=== PATIENT | female | born 1995 | race Caucasian/White ===

== ENCOUNTER 2016-12-29 20:02 | Emergency (ER) | payer BC ==
[2016-12-29 20:38] VITALS: BP 106/57
--- NOTE | 2016-12-29 21:05 | UC ---
Throat Pain/Nasal Hans HPI - HPI Summary HPI Summary: ariana od sore throat for 2 days throat pain h=is worseneing headache pressure in the front of neck denies ear , cough and nasal congestion denies fever and chi;lls not taking any medication for her symptoms - History of Current Complaint Chief Complaint: UCGeneralIllness Stated Complaint: SORE THROAT Time Seen by Provider: 12/29/16 20:41 Hx Obtained From: Patient - Allergies/Home Medications Allergies/Adverse Reactions: Allergies Allergy/AdvReac Type Severity Reaction Status Date / Time Penicillins Allergy Unknown Verified 12/29/16 20:32 Reaction Details Home Medications: Home Medications Escitalopram (NF) [Lexapro (NF)] 15 mg 12/29/16 [History] Valacyclovir HCl [Valtrex] 12/29/16 [History] PMH/Surg Hx/FS Hx/Imm Hx Previously Healthy: Yes - Surgical History Surgical History: None - Family History Known Family History: Negative: Cardiac Disease, Hypertension, Diabetes - Social History Occupation: Employed Full-time Lives: With Family Alcohol Use: Rare Substance Use Type: None Smoking Status (MU): Never Smoked Tobacco Review of Systems Constitutional: Negative Skin: Negative Eyes: Negative ENT: Sore Throat Respiratory: Negative Cardiovascular: Negative Gastrointestinal: Negative Genitourinary: Negative Motor: Negative Neurovascular: Negative Musculoskeletal: Negative Neurological: Headache Psychological: Negative All Other Systems Reviewed And Are Negative: Yes Physical Exam Triage Information Reviewed: Yes Appearance: No Pain Distress, Well-Nourished Vital Signs: Initial Vital Signs Temp 98.7 F 12/29/16 20:33 Pulse 81 12/29/16 20:33 Resp 16 12/29/16 20:33 BP 106/57 12/29/16 20:33 Pulse Ox 99 12/29/16 20:33 Vital Signs Reviewed: Yes Eyes: Positive: Conjunctiva Clear ENT: Positive: Pharyngeal erythema, TMs normal. Negative: Nasal congestion, Nasal drainage, Tonsillar swelling, Tonsillar exudate Neck: Positive: No Lymphadenopathy Respiratory: Positive: Lungs clear, Normal breath sounds, No respiratory distress, No accessory muscle use Cardiovascular: Positive: RRR, No Murmur, Pulses Normal Abdomen Description: Positive: Nontender, Soft Bowel Sounds: Positive: Present Musculoskeletal Exam: Normal Neurological: Positive: Alert Psychological Exam: Normal Skin Exam: Normal Throat Pain/Nasal Course/Dx - Differential Dx/Diagnosis Differential Diagnosis/HQI/PQRI: Pharyngitis, Tonsillitis Provider Diagnoses: strep pharyngitis Discharge - Discharge Plan Condition: Stable Disposition: HOME Patient Education Materials: Strep Throat (ED) Referrals: Ally Bartno MD [Primary Care Provider] - Additional Instructions: Please take antibiotic as directed Increase fluids and rest Take acetaminophen or ibuprofen for fever or pain Please review your discharge instructions. If your symptoms do not improve please call your primary care provider or return to urgent care.
== END 2016-12-29 21:15 | disposition home or self-care (01) ==
LOC: UCEAST 20:02
DX: J02.0 Streptococcal pharyngitis (principal); Z88.0 Allergy status to penicillin
CPT/HCPCS: 87651; 99202; G0463

== ENCOUNTER 2017-01-09 03:36 | Emergency (ER) | payer BC ==
[2017-01-09] MEDS ORDERED: Ketorolac INJ* 60 MG/2 ML VIAL IM ONE (04:24)
[2017-01-09 05:19] VITALS: BP 108/51
--- NOTE | 2017-01-09 05:41 | ED ---
I, Natanael,Cesario, scribed for Ko King MD on 01/09/17 at 0423 . Throat Pain/Nasal Congestion - HPI Summary HPI Summary: This 21 y/o female presents to ED for persistent throat pain since 10 days ago. Pt was seen at Urgent Care about a week ago, and was dx with strep throat. Pt was given clarithromycin. She admits to missing one dose, and still has a day worth left. Increased fatigue. Increased sinus congestion. PMHx includes seasonal allergies and depression that is controlled with medications. Primary care provider involves Dr. Barton. - History of Current Complaint Chief Complaint: EDThroatPain Time Seen by Provider: 01/09/17 04:05 Hx Obtained From: Patient, Medical Records Onset/Duration: Sudden Onset, Still Present Associated Signs And Symptoms: Positive: Sinus Discomfort Related History: Seasonal Allergies - Allergies/Home Medications Allergies/Adverse Reactions: Allergies Allergy/AdvReac Type Severity Reaction Status Date / Time Penicillins Allergy Unknown Verified 12/29/16 20:32 Reaction Details PMH/Surg Hx/FS Hx/Imm Hx Psychiatric History: Reports: Hx Depression Infectious Disease History: No Infectious Disease History: Reports: History Other Infectious Disease - Genital warts Denies: Traveled Outside the [place] in Last 30 Days - Family History Known Family History: Negative: Cardiac Disease, Hypertension, Diabetes - Social History Alcohol Use: Rare Hx Substance Use: No Substance Use Type: Reports: None Hx Tobacco Use: No Smoking Status (MU): Never Smoked Tobacco Review of Systems Positive: Fatigue. Negative: Fever Negative: Photophobia, Erythema Positive: Sore Throat, Other - sinus discomfort Negative: Palpitations, Chest Pain Negative: Shortness Of Breath, Cough Negative: Abdominal Pain, Vomiting, Nausea Negative: dysuria, hematuria Negative: Myalgia, Edema Negative: Rash Neurological: Other - Negative for dizziness Negative: Headache Negative: Anxious, Depressed All Other Systems Reviewed And Are Negative: Yes Physical Exam - Summary Physical Exam Summary: Constitutional: Well-developed, Well-nourished, Alert. (-) Distressed Skin: Warm, Dry HENT: Normocephalic; Atraumatic Eyes: Conjunctiva normal Neck: Musculoskeletal ROM normal neck. (-) JVD, (-) Stridor, (-) Tracheal deviation Cardio: Rhythm regular, rate normal, Heart sounds normal; Intact distal pulses; The pedal pulses are 2+ and symmetric. Radial pulses are 2+ and symmetric. (+) 2 /5 systolic Murmur Pulmonary/Chest wall: Effort normal. (-) Respiratory distress, (-) Wheezes, (-) Rales Abd: Soft, (-) Tenderness, (-) Distension, (-) Guarding, (-) Rebound Musculoskeletal: (-) Edema Lymph: (-) Cervical adenopathy Neuro: Alert, Oriented x3 Psych: Mood and affect Normal Triage Information Reviewed: Yes Vital Signs On Initial Exam: Initial Vitals Temp Pulse Resp BP Pulse Ox 98.2 F 76 16 139/83 99 01/09/17 03:38 01/09/17 03:38 01/09/17 03:38 01/09/17 03:38 01/09/17 03:38 Vital Signs Reviewed: Yes Diagnostics - Vital Signs Vital Signs Temp Pulse Resp BP Pulse Ox 01/09/17 03:50 98 F 71 14 107/56 98 01/09/17 03:38 98.2 F 76 16 139/83 99 - Laboratory Lab Statement: Any lab studies that have been ordered have been reviewed, and results considered in the medical decision making process. Re-Evaluation - Re-Evaluation First Eval Re-Evaluation Time: 05:08 Comment: MD in room to re-evaluate pt. Plan of care involving discharge is discussed, and pt is agreeable this time. EENT Course/Dx - Course Assessment/Plan: This 21 y/o female presents to ED for persistent sore throat since 10 days ago. Pt is currently on abx treatment with a day's dose left. She was treated symptomatically with ketorolac. Pt is advised to follow up with her primary care in 2 days. - Diagnoses Provider Diagnoses: Upper respiratory infection Discharge - Discharge Plan Condition: Stable Disposition: HOME Patient Education Materials: Upper Respiratory Infection (ED) Referrals: Ally Barton MD [Primary Care Provider] - 2 Days The documentation as recorded by the Natanael pham Soohyun accurately reflects the service I personally performed and the decisions made by me, Ko King MD.
== END 2017-01-09 05:21 | disposition home or self-care (01) ==
LOC: ED 03:36
DX: J06.9 Acute upper respiratory infection, unspecified (principal); J02.9 Acute pharyngitis, unspecified; R53.83 Other fatigue
CPT/HCPCS: 96372; 99281; J1885

== ENCOUNTER 2017-08-17 19:00 | Emergency (ER) | payer BC ==
--- OUTSIDE RECORDS SUMMARY | 2017-08-17 19:05 | XMS REPORT ---
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 Active unspecified Onset: 08/23/2016 Acute pharyngitis Kushal Ruelas M.D. Active Family History Date Family Member(s) Problem(s) Comments Father 65 Mother 57 First Brother 34 First Sister 36 Social History Type Date Description Comments Education Highest level completed, 12th G[employer]. [employer]. [employer], grade went on exchange to [employer] for 10 months. Lives With Mother And Father Diet recently became a vegetarian. due to social economic reasons. Sleep Typically sleeps 7 hours a night Occupation working at [employer] on also [employer] for twin boys- the weekend. just turned 1. Cigarette Use Never Smoked Cigarettes ETOH Use Social Alcohol almost none. ( 09/06) had been drinking more in the past Recreational Drug Use Denies Drug Use Smoking Patient has never smoked Exercise Type/Frequency Exercises regularly walks 40 minutes 3-4 times a week. Hikes, dances. Seat Belt/Car Seat Always uses seat belt Currently Active Patient is currently sexually active Currently Active with men. No STI. Condom Use Occasionally Dom Violence Screen feels safe at home, at work, and in the community Allergies, Adverse Reactions, Alerts Date Description Reaction Status Severity Comments 05/29/2014 Penicillin active Medications Medication Date Status Form Strength Qnty SIG Indications Ordering Provider Escitalopram Active Tablets 20mg 30tabs 1 by F43.21 Ally Tamayo Oxalate 017 mouth Mick, every M.D. day Valtrex Active Tablets 500mg 40tabs 4 by B00.9 Ally Tamayo 016 mouth Mick, twice M.D. daily for outbreak s. Nexplanon Active Implant 68mg Sep 2015 Ally LDanilo 016 Mick, M.D. Clarithromycin Hx Tablets 250mg 1 by Unknown 017 - mouth twice a 017 day Escitalopram Hx Tablets 10mg 45tabs 1 /2 by F43.21 Ally Tamayo Oxalate 017 - mouth Mick, every M.D. 017 day Escitalopram Hx Tablets 10mg 30tabs 1 by F43.21 Ally Tamayo Oxalate 017 - mouth Mick, every M.D. 017 day Azithromycin Hx Tablets 250mg 6tabs 2 by J02.9 Kushal Flores 017 - mouth Midura, today M.D. 017 and 1 by mouth x 4 days Escitalopram Hx Tablets 5mg 30tabs 1 by F43.21 Ally Tamayo Oxalate 016 - mouth Mick, every M.D. 017 day No Active Hx Unknown Medications 016 - 016 No Active Hx Unknown Medications 014 - 014 Escitalopram Hx Tablets 5mg 90tabs 1 by 311 Ally Tamayo Oxalate 014 - mouth Mick, every M.D. 016 day Medications Administered in Office Medication Date Status Form Strength Qnty SIG Indications Ordering Provider TB Intradermal Administered Injection Unknown Test 001 TB Intradermal Administered Injection Unknown Test 000 TB Intradermal Administered Injection Unknown Test 997 Immunizations CPT Code Status Date Vaccine Reaction Lot # [id number] Given 09/13/2016 Influenza Vac, Quadrivalent, Slit Virus, [id number] [address] Given 05/29/2014 DO Not Use Split Influenza Virus Vaccine [id number] 33586 Given 06/11/2012 Gardasil vacine typs 6,11,16,18 3 dose schedule 85572 Given 02/25/2011 Gardasil vacine typs 6,11,16,18 3 dose schedule 62371 Given 12/02/2010 Meningococcal Conjugate menactra Vaccine,Serogroups For Intramuscular Use 63204 Given 11/22/2010 Gardasil vacine typs 6,11,16,18 3 dose schedule 01022 Given 10/22/2007 Hep A Ped 2-Dose Immunization 41120 Given 09/19/2006 Tdap Tetanus, W Pertussis [id number] 62183 Given 02/24/2000 MMR Virus Immunization 34146 Given 02/24/2000 DTaP Immunization 51356 Given 02/24/2000 Hep A Ped 2-Dose Immunization 56094 Given 07/12/1999 (IPV) [place]active [place]iovirus Vacc[place]v 53056 Given 10/01/1996 Hib PRP-T Conjugate 4 Dose Schedule 31239 Given 10/01/1996 DTaP Immunization 76629 Given 04/30/1996 MMR Virus Immunization 59243 Given 1995 Hepatitis B Immunization, [place]-19 Years 00984 Given 1995 DTP & Hib Immunization 23076 Given 1995 (IPV) [place] 68814 Given 1995 DTP & Hib Immunization 14867 Given 1995 (IPV) Inactive Poliovirus Vacc[place]v 83520 Given 1995 Hepatitis B Immunization, [place]-19 Years 59827 Given 1995 DTP & Hib Immunization 82490 Given 1995 (IPV) Inactive Poliovirus Vaccine opv 51619 Given 1995 Hepatitis B Immunization, -19 Years Vital Signs Date Vital Result Comment 07/21/2017 BP Systolic 96 mmHg BP Diastolic 54 mmHg Heart Rate 62 /min Body Temperature 99.0 F Height 62 inches 5'2" Weight 134.12 lb BMI (Body Mass Index) 24.5 kg/m2 06/21/2017 BP Systolic 102 mmHg BP Diastolic 60 mmHg Heart Rate 60 /min Body Temperature 97.9 F Respiratory Rate 18 /min Height 62 inches 5'2" Weight 132.50 lb BMI (Body Mass Index) 24.2 kg/m2 02/13/2017 BP Systolic 100 mmHg BP Diastolic 70 mmHg Heart Rate 80 /min Body Temperature 98.1 F Respiratory Rate 18 /min Height 62 inches 5'2" Weight 124.00 lb BMI (Body Mass Index) 22.7 kg/m2 12/31/2016 BP Systolic 100 mmHg BP Diastolic 60 mmHg Heart Rate 60 /min Body Temperature 97.6 F Respiratory Rate 16 /min Height 62 inches 5'2" Weight 122.00 lb BMI (Body Mass Index) 22.3 kg/m2 12/01/2016 BP Systolic 110 mmHg BP Diastolic 70 mmHg Heart Rate 60 /min Body Temperature 98.0 F Respiratory Rate 18 /min Height 62 inches 5'2" Weight 128.00 lb BMI (Body Mass Index) 23.4 kg/m2 10/24/2016 BP Systolic 114 mmHg BP Diastolic 60 mmHg Heart Rate 60 /min Body Temperature 98.4 F Respiratory Rate 16 /min Height 62 inches 5'2" Weight 125.38 lb BMI (Body Mass Index) 22.9 kg/m2 09/13/2016 BP Systolic 98 mmHg BP Diastolic 62 mmHg Heart Rate 66 /min Body Temperature 97.9 F Respiratory Rate 16 /min Height 62 inches 5'2" Weight 122.38 lb BMI (Body Mass Index) 22.4 kg/m2 08/23/2016 BP Systolic 120 mmHg BP Diastolic 68 mmHg Heart Rate 84 /min Body Temperature 102.7 F Respiratory Rate 18 /min Weight 125.25 lb 08/02/2016 BP Systolic 110 mmHg BP Diastolic 70 mmHg Heart Rate 72 /min Body Temperature 98.0 F Respiratory Rate 18 /min Height 62 inches 5'2" Weight 124.00 lb BMI (Body Mass Index) 22.7 kg/m2 04/18/2016 BP Systolic 100 mmHg BP Diastolic 70 mmHg Heart Rate 60 /min Body Temperature 98.2 F Respiratory Rate 18 /min Height 62 inches 5'2" Weight 127.00 lb BMI (Body Mass Index) 23.2 kg/m2 06/30/2014 BP Systolic 116 mmHg BP Diastolic 66 mmHg Heart Rate 60 /min Body Temperature 98.6 F Respiratory Rate 16 /min Height 62 inches 5'2" Weight 130.12 lb BMI (Body Mass Index) 23.8 kg/m2 05/29/2014 BP Systolic 110 mmHg BP Diastolic 72 mmHg Heart Rate 68 /min Body Temperature 98.7 F Respiratory Rate 14 /min Height 62 inches 5'2" Weight 131.00 lb BMI (Body Mass Index) 24.0 kg/m2 Results Test Date Test Result H/L Range Note Vaginitis Plus Nuswab 12/31/2016 Atopobium vaginae Low - 0 Score 1 Bvab 2 Low - 0 Score 1 Megasphaera 1 Low - 0 Score 1, 2 Audrey albicans, Carol Negative Negative 1 Audrey glabrata, Carol Negative Negative 1, 3 Trich vag by Carol Negative Negative 1 Chlamydia trachomatis, Carol Negative Negative 1 Neisseria gonorrhoeae, Carol Negative Negative 1 Hsvig+HSV Iig+HSVIgM 12/31/2016 HSV, IgM I/II <0.91 Ratio 0.00-0.90 1 , 4 Combination HSV 1 IgG, Type Spec 31.40 index High 0.00-0.90 1, 5 HSV 2 IgG, Type Spec <0.91 index 0.00-0.90 1, 6 Laboratory test finding 12/31/2016 HCV Antibody <0.1 s/coratio 0.0- 0.9 1, 7 RPR Non Reactive Non Reactive 1 HIV 1/O/2 Ag/AB Prelim 12/31/2016 HIV Screen 4th Non Reactive Non Reactive 1 W/[place] RFX Sup Generation wRfx Laboratory test 12/29/2016 Rapid Strep POSITIVE Negative 8 finding Molecular Laboratory test 08/23/2016 Quickstrep positive Negative finding Complete Blood Count 04/22/2016 WBC 3.9 x10^3/UL 3.6-9.6 RBC 3.91 x10^6/UL 3.90-5.70 HGB 11.2 g/dL Low 12.1-17.2 HCT 34 % Low 36-50 MCV 87.0 fL 82.2-97.4 MCH 28.8 pg 27.6-33.3 MCHC 33.1 g/dL 33.0-35.5 RDW 14.4 % High 11.6-13.7 PLT 157 x10^3/UL 150-400 MPV 9.3 fL 7.4-10.4 Gran # 2.0 x10^3/UL 1.5-7.2 Lymph# 1.8 x10^3/UL 0.7-4.9 [place]# 0.1 x10^3/UL 0.1-0.9 Gran % 49.2 % 42.2-75.2 Lymph % 47.3 % 20.5-51.1 [place]% 3.5 % 1.7-9.3 Comprehensive Metabolic Prof 04/22/2016 Sodium 140 mEq/L 134-149 Potassium 4.3 mEq/L 3.6-5.5 Chloride 100 mEq/L 94-112 Carbon Dioxide 22 mEq/L 21-32 Glucose 89 mg/dL 70-105 BUN 6 mg/dL 6-26 Creatinine 0.7 mg/dL 0.6-1.4 BUN/Creat Ratio 8.6 CALC 8.0-36.0 Calcium 8.9 mg/dL 8.6-10.2 Total Protein 7.0 g/dL 6.4-8.3 Albumin 4.7 g/dL 3.8-5.5 Globulin 2.3 g/dL 2.0-4.8 A/G Ratio 2.0 CALC 0.6-2.3 Alk. Phosphatase 59 U/L 30-110 Alt (SGPT) 9 U/L 7-35 Ast (Sgot) 16 U/L 5-34 Total Bilirubin 0.7 mg/dL 0.2-1.3 GFR Non- >60 ml/min/1.73m^ >=60 GFR >60 ml/min/1.73m^ >=60 Laboratory test finding 04/22/2016 Free T4 0.92 ng/dL 0.75-1.54 9 TSH 3.31 mIU/L 0.50-6.00 Vitamin D25 44 30-100 Comprehensive Metabolic Prof 05/29/2014 Sodium 140 mEq/L 134-149 Potassium 4.0 mEq/L 3.6-5.5 Chloride 106 mEq/L 94-112 Carbon Dioxide 23 mEq/L 21-32 Glucose 98 mg/dL 70-105 BUN 8 mg/dL 6-26 Creatinine 0.6 mg/dL 0.6-1.4 BUN/Creat Ratio 13.3 CALC 8.0-36.0 Calcium 9.6 mg/dL 8.6-10.2 Total Protein 7.1 g/dL 6.4-8.3 Albumin 4.6 g/dL 3.8-5.5 Globulin 2.5 g/dL 2.0-4.8 A/G Ratio 1.8 CALC 0.6-2.3 Alk. Phosphatase 67 U/L 30-110 Alt (SGPT) 9 U/L 7-35 Ast (Sgot) 16 U/L 5-34 Total Bilirubin 0.5 mg/dL 0.2-1.3 Laboratory test finding 05/29/2014 Vitamin D25 58 30-100 TSH 3.92 mIU/L 0.50-6.00 CBC Electronic (a) 05/29/2014 WBC 6.8 3.6-9.6 RBC 4.00 3.90-5.70 Hemoglobin (Fma/CMC/CTX) 12.2 g/dL 12.1 - 17.2 Hematocrit (Fma/CMC/CTX) 35.0 % Low 36.1 - 50.3 Platelets 146 10^3/ul Low 150-400 Lymph% 41.0 % 17.0-48.0 Mixed% 4.8 Neutrophils % 54.2 Mean Corpuscular Vol 88 82.2-97.4 Mean Corpuscular Hemoglobin 30.5 27.6-33.3 Mean Corpuscular Hemo Concen 34.8 32.0-36.0 RDW 14.6 High 11.6-13.7 Mean Platelet Volume 7.8 5.5-11.0 Ua - Non Micro (a) 05/29/2014 Appearance slightly cloudy Color dk yellow Glucose, Urine (Fma/CMC/CTX) neg Bilirubin neg Ketones neg SP Grav >1.030 Blood neg PH 5.5 Protein neg Urobil 0.2 Nitrite neg Leukocytes (Fma/CMC/Centrex) neg 1 2 sst 2 Calculate total score by adding the 3 individual bacterial vaginosis (BV) marker scores together. Total score is interpreted as follows: Total score 0-1: Indicates the absence of BV. Total score 2: Indeterminate for BV. Additional clinical data should be evaluated to establish a diagnosis. Total score 3-6: Indicates the presence of BV. This test was developed and its performance characteristics determined by [facility] It has not been cleared or approved by the Food and Drug Administration. The FDA has determined that such clearance or approval is not necessary. 3 This test was developed and its performance characteristics determined by [facility] It has not been cleared or approved by the Food and Drug Administration. The FDA has determined that such clearance or approval is not necessary. 4 Negative <0.91 Equivocal 0.91 - 1.09 Positive >1.09 5 Negative <0.91 Equivocal 0.91 - 1.09 Positive >1.09 Note: Negative indicates no antibodies detected to HSV-1. Equivocal may suggest early infection. If clinically appropriate, retest at later date. Positive indicates antibodies detected to HSV-1. 6 Negative <0.91 Equivocal 0.91 - 1.09 Positive >1.09 Note: Negative indicates no antibodies detected to HSV-2. Equivocal may suggest early infection. If clinically appropriate, retest at later date. Positive indicates antibodies detected to HSV-2. 7 Negative: < 0.8 Indeterminate: 0.8 - 0.9 Positive: > 0.9 The CDC recommends that a positive HCV antibody result be followed up with a HCV Nucleic Acid Amplification test (533076). 8 Cyber Forensic Specialist: [id number] FASTING Procedures Description No Information Encounters Type Date Location Provider CPT E/M Dx Office Visit 06/21/2017 3:20p Main Office Ally Barton [id number] F43.23 M.D. Office Visit 02/13/2017 1:40p Main Office Ally Barton 05521 F43.23 M.D. Office Visit 12/31/2016 11:00a Main Office LISA AscencioP 37485 Z11.3 Office Visit 12/01/2016 3:40p [facility] Ally Barton 69327 F43.21 M.DDanilo Office Visit 10/24/2016 6:40p Main Office Ally Barton 95720 F43.21 MGwendolyn G47.09 Office Visit 09/13/2016 3:20p [facility] Ally Barton M.D. 27114 Z23 F43.21 Office Visit 08/23/2016 8:20p Main Office Kushal Ruelas M.D. 12435 J02.9 J06.9 Office Visit 08/02/2016 3:40p [facility] Office Ally Barton M.D. 53515 F43.21 B00.9 Office Visit 04/18/2016 1:00p Main Office Ally Barton M.D. 41625 F43.23 E55.9 Office Visit 06/30/2014 8:20p Main Office Ally Barton M.D. 03900 311 472.0 Office Visit 05/29/2014 1:10p Main Office Ally Barton M.D. 33283 V70.0 V25.09 472.0 780.52 268.9 311 724.2 v04.81 Plan of Care Future Appointment(s):10/19/2017 9:00 am - Ally Barton M.D. at [facility] Obpejv5607/21/2017 - Verenice Grace, NPJ02.9 Acute pharyngitis, unspecifiedComments:patient was instructed to call or return if symptoms did not improve Supportive care: 1) Make sure you are resting. This is the only way the body can take the energy it needs to heal itself. 2) Fluids, fluids, fluids! - Drink a lot of water or other caffeine free, clear liquids - Use a humidifier in your room at night - Try either hot tea with lemon or honey or some cool ice pops if that feels better. 4) Make sure you are washing your hands well so you are not spreading your illness to the community. 5) Switch out your toothbrush to prevent reinfection. 6) you can try taking Childrens Tylenol to help ease the pain of the sore throatCall if you have any questions or concerns, worsening condition or failure to improve.AllComments:~B_ ~U_Medication Management~b_~u_ Patient Understands medications she's taking? Yes No Are there Barriers to Adherence? Yes No Has the patient been asked about herbal supplements and therapies, and OTC meds? Yes No ~B_~U_Care Plan~b_~u_1. Patient has been queried about patient's goals/ preferences and functional/lifestyle goals at relevant visits. If relevant, describe: na2. Treatment goals as explained to the patient: above3. Are there barriers to meeting treatment goals? Yes No If Yes, please describe:4. Self-Management goals as described to the patient: Yes NoFollow up:As always, we strongly encourage a healthy diet and making physical activity a part of your every day life. If you have questions about how or where to start, please contact the office.
--- NOTE | 2017-08-17 19:09 | UC ---
Throat Pain/Nasal Hans HPI - HPI Summary HPI Summary: 22 year old female presents with complains of sore throat and cough. - History of Current Complaint Stated Complaint: THROAT PAIN Time Seen by Provider: 08/17/17 19:09 Hx Obtained From: Patient Onset/Duration: Sudden Onset Severity: Moderate Pain Scale Used: 0-10 Numeric - 5 Cough: Nonproductive Associated Signs & Symptoms: Positive: Dysphagia - Allergies/Home Medications Allergies/Adverse Reactions: Allergies Allergy/AdvReac Type Severity Reaction Status Date / Time Penicillins Allergy Unknown Verified 08/17/17 19:11 Reaction Details PMH/Surg Hx/FS Hx/Imm Hx Previously Healthy: Yes - Surgical History Surgical History: None - Family History Known Family History: Negative: Cardiac Disease, Hypertension, Diabetes - Social History Alcohol Use: Rare Substance Use Type: None Smoking Status (MU): Never Smoked Tobacco Review of Systems Constitutional: Negative Skin: Negative Eyes: Negative ENT: Sore Throat, Nasal Discharge, Sinus Congestion, Sinus Pain/Tenderness Respiratory: Negative Cardiovascular: Negative Gastrointestinal: Negative Genitourinary: Negative Motor: Negative Neurovascular: Negative Musculoskeletal: Negative Neurological: Negative Psychological: Negative All Other Systems Reviewed And Are Negative: Yes Physical Exam Triage Information Reviewed: Yes Vital Signs Reviewed: Yes Eye Exam: Normal ENT: Positive: Pharyngeal erythema, Nasal congestion, Nasal drainage, Sinus tenderness Dental Exam: Normal Neck exam: Normal Neck: Positive: 1 Respiratory Exam: Normal Cardiovascular Exam: Normal Abdominal Exam: Normal Musculoskeletal Exam: Normal Neurological Exam: Normal Psychological Exam: Normal Skin Exam: Normal Throat Pain/Nasal Course/Dx - Differential Dx/Diagnosis Provider Diagnoses: pharyngitis. cough. post nasal drip Discharge - Discharge Plan Condition: Stable Disposition: HOME Prescriptions: Azithromyxin RON (NF) [Z-Ron (Zithromax) 250 mg tabs #6] 2 tab PO .TODAY, THEN 1 DAILY #6 tab LoraTADine TAB(NF) [Claritin 10 MG TAB(NF)] 10 mg PO DAILY #30 tab Magic M W2 Riki/Maal/Nyst/Lido* 5 ml SWISH SPIT QID PRN #120 ml PRN Reason: Pain Patient Education Materials: Pharyngitis (ED) Referrals: Ally Barton MD [Primary Care Provider] -
[2017-08-17 19:11] VITALS: BP 121/65
== END 2017-08-17 20:05 | disposition home or self-care (01) ==
LOC: UCEAST 19:00
DX: J02.9 Acute pharyngitis, unspecified (principal); R09.82 Postnasal drip
CPT/HCPCS: 87651; 99212; G0463

== ENCOUNTER 2018-05-25 17:10 | Emergency (ER) | payer BC ==
[2018-05-25 17:27] VITALS: BP 108/70
--- NOTE | 2018-05-25 17:42 | UC ---
Throat Pain/Nasal Hans HPI - HPI Summary HPI Summary: 23 y/o female presents to the urgent care c/o sore throat w/ chills for the past 2 days. Pain w/ swallowing is 8/10 associated w/ mild nasal congestion and clear discharge. Pt has been taking Nyquil and Dayquil to alleviate symptoms w/ o any improvement. Pt denies SOB, chest pain, abdominal pain, N/V/D. - History of Current Complaint Chief Complaint: UCGeneralIllness Stated Complaint: SORE THROAT Time Seen by Provider: 05/25/18 17:40 Hx Obtained From: Patient Hx Last Menstrual Period: 1.5 weeks ago Onset/Duration: Gradual Onset, Lasting Days - 2 days, Still Present, Worse Since - today Severity: Moderate Pain Intensity: 8 Pain Scale Used: 0-10 Numeric Cough: None Associated Signs & Symptoms: Positive: Dysphagia Related History: Seasonal Allergies - Epiglottits Risk Factors Epiglottis Risk Factors: Negative - Allergies/Home Medications Allergies/Adverse Reactions: Allergies Allergy/AdvReac Type Severity Reaction Status Date / Time Penicillins Allergy Unknown Verified 05/25/18 17:27 Reaction Details Home Medications: Home Medications Fexofenadine (NF) [Ann-Marie 180 (NF)] 180 mg PO DAILY 05/25/18 [History Confirmed 05/25/18] ValACYclovir (*) [Valtrex 500 mg (*)] 500 mg PO DAILY PRN 05/25/18 [History Confirmed 05/25/18] PMH/Surg Hx/FS Hx/Imm Hx Previously Healthy: Yes Respiratory History: Asthma - as a child - Surgical History Surgical History: Yes Surgery Procedure, Year, and Place: tonsillectomy - Family History Known Family History: Positive: Hypertension Negative: Cardiac Disease, Diabetes - Social History Occupation: Employed Full-time Lives: With Family Alcohol Use: Rare Substance Use Type: None Smoking Status (MU): Never Smoked Tobacco Review of Systems Constitutional: Negative Skin: Negative Eyes: Negative ENT: Sore Throat Respiratory: Negative Cardiovascular: Negative Gastrointestinal: Negative Genitourinary: Negative Motor: Negative Neurovascular: Negative Musculoskeletal: Negative Neurological: Negative Psychological: Negative Is Patient Immunocompromised?: No All Other Systems Reviewed And Are Negative: Yes Physical Exam - Summary Physical Exam Summary: VITAL SIGNS: Reviewed. GENERAL: Patient is a well developed and nourished female who is sitting comfortable in the examining table. Patient is not in any acute respiratory distress. HEAD AND FACE: No signs of trauma. No ecchymosis, hematomas or skull depressions. No sinus tenderness. EYES: PERRLA, EOMI x 2, No injected conjunctiva, no nystagmus. No photophobia. EARS: Hearing grossly intact. Ear canals and tympanic membranes are within normal limits. MOUTH: Positive pharynx with erythema, exudates, palatal petechiae. No B/L tonsils. Uvula in midline. NECK: Supple, trachea is midline, Positive anterior cervical lymphadenopathy, no JVD, no carotid bruit, no c-spine tenderness, neck with full ROM. No meningeal signs, no Kernig's or brudzinskis signs. CHEST: Symmetric, no tenderness at palpation LUNGS: Clear to auscultation bilaterally. No wheezing or crackles. CVS: Regular rate and rhythm, S1 and S2 present, no murmurs or gallops appreciated. ABDOMEN: Soft, non-tender. No signs of distention. No rebound no guarding, and no masses palpated. Bowel sounds are normal. EXTREMITIES: FROM in all major joints, no edema, no cyanosis or clubbing. NEURO: Alert and oriented x 3. No acute neurological deficits. Speech is normal and follows commands. SKIN: Dry and warm Triage Information Reviewed: Yes Vital Signs: Initial Vital Signs Temp 98.3 F 05/25/18 17:23 Pulse 65 05/25/18 17:23 Resp 16 05/25/18 17:23 BP 108/70 05/25/18 17:23 Pulse Ox 99 05/25/18 17:23 Throat Pain/Nasal Course/Dx - Course Course Of Treatment: 23 y/o female presents to the urgent care c/o sore throat w/ chills for the past 2 days. Pain w/ swallowing is 8/10 associated w/ mild nasal congestion and clear discharge. Pt has been taking Nyquil and Dayquil to alleviate symptoms w/o any improvement. Pt denies SOB, chest pain, abdominal pain, N/V/D.Hx obtained. Pt w/ Pharyngitis on examination. Rapid strep ordered , result: negative. Viral pharyngitis.Pt Rx ibuprofen PO to alleviates symptoms of pain and swelling. First dose givne at the clinic. Pt tolerated well medication and felt better. Advised on hand washing to avoid spreading. Pt advised to rest, eat well and avoid strenuous exercise. If symptoms do not improve or worsen advised to return to the urgent care or f/u with her PCP for further evaluation and treatment. Pt understood and agreed w/ plan of care. - Differential Dx/Diagnosis Differential Diagnosis/HQI/PQRI: Laryngitis, Mononucleosis, Otitis Media, Pharyngitis, Tonsillitis, URI Provider Diagnoses: 1- viral pharyngitis Discharge - Sign-Out/Discharge Documenting (check all that apply): Patient Departure - D/c home All imaging exams completed and their final reports reviewed: No Studies - Discharge Plan Condition: Stable Disposition: HOME Prescriptions: Ibuprofen TAB* [Motrin TAB* 600 MG] 600 mg PO Q6H PRN #30 tab PRN Reason: Sore Throat Patient Education Materials: Pharyngitis (ED) Referrals: Ally Barton MD [Primary Care Provider] - Additional Instructions: 1-Please take ibuprofen PO q6-8hrs prn as instructed after meals to alleviate pain and swelling. Increase fluid intake, eat well, rest and avoid strenuous exercise 2-If symptoms do not improve or worsen please return to the urgent care or f/u with your PCP in 3 days for further evaluation and treatment. - Billing Disposition and Condition Condition: STABLE Disposition: Home - Attestation Statements Provider Attestation: I was available for consult. This patient was seen by the ROBERT. The patient was not presented to, seen by, or examined by me. -Wilian
[2018-05-25] MEDS ORDERED: Ibuprofen TAB* 600 MG PO ONE (17:49)
== END 2018-05-25 18:07 | disposition home or self-care (01) ==
LOC: UCEAST 17:10
DX: J02.9 Acute pharyngitis, unspecified (principal); Z88.0 Allergy status to penicillin
CPT/HCPCS: 87651; 99212; A9270-GY; G0463